=== PATIENT | female | born 1965 | race Asian ===

== ENCOUNTER → 2023-05-10 10:31 | Outpatient (REF) | payer BC, SELFPAY | LOC: RAD 10:31 | PROVIDERS: ATTENDING PHYSICIAN Physician Assistant Medical | DX: M54.12 Radiculopathy, cervical region (principal) | CPT/HCPCS: 72050 ==

== ENCOUNTER → 2023-05-11 10:38 | Outpatient (REF) | payer BC, SELFPAY | LOC: WDC 10:38 | PROVIDERS: ATTENDING PHYSICIAN Physician Assistant Medical | DX: Z12.31 Encounter for screening mammogram for malignant neoplasm of breast (principal) | CPT/HCPCS: 77063; 77067 ==